=== PATIENT | female | born 1965 | race Native Hawaiian/Other Pacific Islander ===

== ENCOUNTER 2016-04-05 09:20 | Day surgery (SDC) | payer BC ==
[2016-04-05] MEDS ORDERED: PROPOFOL 10 MG/ML VIAL IV ONE ×2 (14:00→14:45)
[2016-04-05] MEDS ORDERED: LIDOCAINE 2% MDV (20MG/ML) 20ML VIAL IV ONE (14:45)
--- NOTE | 2016-04-08 08:20 | Operative Note ---
DATE OF SURGERY: SURGEON: Pilo Neely MD OPERATION: COLONOSCOPY. INDICATIONS: This is a 50-year-old female with average risk for colorectal cancer who presented for screening colonoscopy. POSTOPERATIVE DIAGNOSES: 1. Two 2-3 mm ascending colon polyps which were removed by cold biopsy forceps. 2. A 6 mm descending colon polyp that was removed by cold snare. 3. A 5 mm sessile polyp in the rectum that was removed by cold snare. ANESTHESIA: Sedation is per Anesthesia. Pulse oximetry was monitored throughout the procedure to maintain O2 saturation of 90% or greater. Supplemental oxygen was administered via nasal cannula. Cardiac and vital signs were monitored throughout the duration of the procedure, and they were stable. The procedure of colonoscopy and risks and benefits of the procedure, including the risk of bleeding and perforation, among others, were explained to the patient who voiced understanding and desired to have the procedure done. Physical examination was performed, and the patient was found stable for sedation. PROCEDURE: The patient was placed in the left lateral position. Sedation was initiated. A digital rectal exam was performed and showed some mild external hemorrhoids with no palpable rectal masses. An Olympus PCF-180AL colonoscope was then inserted into the rectum under direct visualization. It was advanced to the cecum without difficulty. The ileocecal valve and appendiceal orifice were identified and photographed. The colonic mucosa was carefully examined upon introduction of the colonoscope. There were scattered diverticula noted in the sigmoid and descending colon. In the ascending colon were two 2-3 mm sessile polyps that were noted and they were removed by cold biopsy forceps. The colonoscope was then withdrawn while carefully examining the colonic mucosal surfaces. The cecum, the rest of the ascending colon, transverse colon appeared normal. In the descending colon was a 6 mm sessile polyp that was noted and was removed by cold snare. The rest of the descending colon and sigmoid colon mucosa revealed no other lesions. In the rectum was a 5 mm sessile polyp that was noted and was removed by cold snare. Retroflexion was performed and revealed no other lesions. She tolerated the procedure well without any immediate complications. She remained with stable vital signs and was transferred to the recovery room. RECOMMENDATIONS: She is to have a repeat colonoscopy for surveillance in 3-5 years depending on the histology of the polyps. Thank you for allowing me to participate in the care of your patient. Pilo Neely MD CC: Dr. Lara AGUILAR
== END 2016-04-05 12:01 | disposition home or self-care (01) ==
LOC: HOP 09:20
PROVIDERS: ATTEND Internal Medicine Gastroenterology
DX: Z12.11 Encounter for screening for malignant neoplasm of colon (principal); D12.8 Benign neoplasm of rectum; D12.2 Benign neoplasm of ascending colon; E78.00 Pure hypercholesterolemia, unspecified
CPT/HCPCS: 81025

== ENCOUNTER 2017-01-25 16:47 | Emergency (ER) | payer BC ==
--- NOTE | 2017-01-25 18:55 | Emergency Department Record ---
History of Present Illness - General Chief complaint: Lower Extremity Pain Stated complaint: LEG PAIN Time Seen by Provider: 01/25/17 18:41 Source: Patient Mode of Arrival: Ambulatory Limitations: No limitations - History of Present Illness Initial comments: pt has had calf pain for week that has gradually gotten worse. she has rode in a car for greater than 500 miles this week. it hurts to touch and walk. this afternoon the pain became worse when she jumped down and she felt a pop. she has never eperienced any thing like this before. she has no cp or sob MD Complaint: Extremity pain, Extremity swelling Onset/Timin -: Days(s) Location: Left, Lower Leg History of Same: No Severity scale (1-10): 5 Quality: Burning Consistency: Intermittent Improves with: Nothing Worsens with: Exertion, Walking, Weight bearing Associated Symptoms: Denies other symptoms - Related Data Home Medications Medication Instructions Recorded Confirmed Last Taken Atorvastatin Calcium [Lipitor] 10 mg PO QHS 01/25/17 01/25/17 01/24/17 Allergies Allergy/AdvReac Type Severity Reaction Status Date / Time No Known Drug Allergies Allergy Verified 03/20/16 16:25 Travel Screening - Travel/Exposure Within Last 30 Days Have you traveled within the last 30 days?: No - Travel/Exposure Within Last Year Have you traveled outside the [place] in the last year?: No - Additonal Travel Details Have you been exposed to anyone with a communicable illness?: No - Travel Symptoms Symptom Screening: None Review of Systems Reviewed: No additional complaints except as noted below Constitutional: Reports: As per HPI. Denies: Chills, Fever, Malaise, Night sweats, Weakness, Weight change Eyes: Reports: As per HPI. Denies: Eye discharge, Eye pain, Photophobia, Vision change ENT: Reports: As per HPI. Denies: Congestion, Dental pain, Ear pain, Epistaxis , Hearing loss, Throat pain Respiratory: Reports: As per HPI. Denies: Cough, Dyspnea, Hemoptysis, Stridor, Wheezes Cardiovascular: Reports: As per HPI. Denies: Arrhythmia, Chest pain, Dyspnea on exertion, Edema, Murmurs, Orthopnea, Palpitations, Paroxysmal nocturnal dyspnea, Rheumatic Fever, Syncope Endocrine: Reports: As per HPI. Denies: Fatigue, Heat or cold intolerance, Polydipsia, Polyuria Gastrointestinal: Reports: As per HPI. Denies: Abdominal pain, Constipation, Diarrhea, Hematemesis, Hematochezia, Melena, Nausea, Vomiting Genitourinary: Reports: As per HPI. Denies: Abnormal menses, Discharge, Dyspareunia, Dysuria, Frequency, Hematuria, Incontinence, Retention, Urgency Musculoskeletal: Reports: As per HPI. Denies: Arthralgia, Back pain, Gout, Joint swelling, Myalgia, Neck pain Skin: Reports: As per HPI. Denies: Bruising, Change in color, Change in hair/ nails, Lesions, Pruritus, Rash Neurological: Reports: As per HPI. Denies: Abnormal gait, Confusion, Headache, Numbness, Paresthesias, Seizure, Tingling, Tremors, Vertigo, Weakness Psychiatric: Reports: As per HPI. Denies: Anxiety, Auditory hallucinations, Depression, Homicidal thoughts, Suicidal thoughts, Visual hallucinations Hematological/Lymphatic: Reports: As per HPI. Denies: Anemia, Blood Clots, Easy bleeding, Easy bruising, Swollen glands Past Medical History - SOCIAL HISTORY Smoking Status: Former smoker Alcohol Use: Occasional Drug Use: None - RESPIRATORY Hx Respiratory Disorders: No - CARDIOVASCULAR Hx Cardio Disorders: No Comment:: high cholesterol - NEURO Hx Neuro Disorders: No - GI Hx GI Disorders: No - Hx Genitourinary Disorders: No - ENDOCRINE Hx Endocrine Disorders: No - MUSCULOSKELETAL Hx Musculoskeletal Disorders: Yes Hx Arthritis: Yes (left hip) - PSYCH Hx Psych Problems: No - HEMATOLOGY/ONCOLOGY Hx Hematology/Oncology Disorders: No Family Medical History Any Significant Family History?: No Hx Heart Disease: Father, Grandparents *Heart Comment: ND Physical Exam - General General Appearance: Alert, Oriented x3, Cooperative, Mild distress - Head Head exam: Normal inspection - Eye Eye exam: Normal appearance, PERRL, EOMI Pupils: Normal accommodation - ENT ENT exam: Normal exam, Mucous membranes moist, Normal external ear exam, Normal orophraynx Ear exam: Normal external inspection. negative: External canal tenderness Nasal Exam: Normal inspection. negative: Discharge, Sinus tenderness Mouth exam: Normal external inspection, Tongue normal Teeth exam: Normal inspection. negative: Dental caries Throat exam: Normal inspection. negative: Tonsillar erythema, Tonsillar exudate - Neck Neck exam: Normal inspection, Full ROM. negative: Tenderness - Respiratory Respiratory exam: Normal lung sounds bilaterally. negative: Respiratory distress - Cardiovascular Cardiovascular Exam: Regular rate, Normal rhythm, Normal heart sounds - GI/Abdominal GI/Abdominal exam: Soft, Normal bowel sounds. negative: Tenderness - Rectal Rectal exam: Deferred - exam: Deferred - Extremities Extremities exam: Calf tenderness, Full ROM, Normal capillary refill, Tenderness , Other (swelling , positive homans and rachel. ignacio normal, achilles intact.) - Back Back exam: Reports: Normal inspection, Full ROM. Denies: Muscle spasm, Rash noted, Tenderness - Neurological Neurological exam: Alert, CN II-XII intact, Normal gait, Oriented X3 - Psychiatric Psychiatric exam: Normal affect, Normal mood - Skin Skin exam: Dry, Intact, Normal color, Warm Course Vital Signs 01/25/17 17:09 Temperature 98.2 F Pulse Rate 74 Respiratory 16 Rate Blood Pressure 137/85 Pulse Ox 99 - Reevaluation(s) Reevaluation #1: 01/25/17 18:56 pt told she likely has a tear of her gastroc but dvt cannot be ruled out. Disposition Disposition: Transfer Clinical Impression: Pain of left calf Disposition: Acute Care Hospital Transfer Transfer To: [facility] Reason For Transfer: needs doppler Accepting Physician: arthur Time Discussed w/Accepting Physician: 18:58 Quality - Quality Measures Quality Measures: N/A - Blood Pressure Screening Does Patient Have Any of the Following: No Blood Pressure Classification: Pre-Hypertensive BP Reading Systolic Measurement: 137 Diastolic Measurement: 85 Screening for High Blood Pressure: < Pre-Hypertensive BP, F/U Documented > [ [id number]] Pre-Hypertensive Follow-up Interventions: Follow-up with rescreen every year.
== END 2017-01-25 19:19 | disposition short-term general hospital (02) ==
LOC: ER 16:47
DX: M79.662 Pain in left lower leg (principal)
CPT/HCPCS: 99283